=== PATIENT | female | born 1990 | race American Indian/Alaskan Native ===

== ENCOUNTER 2018-02-17 13:40 | Emergency (ER) | payer MEDICAID ==
[2018-02-17 13:49] VITALS: BP 104/62
--- NOTE | 2018-02-17 15:36 | Emergency Department Report ---
HPI - General Chief Complaint: Dental/Oral Time Seen by Provider: 02/17/18 15:04 - HPI HPI: 27-year-old Radha female presents to the emergency department with the complaint of pain to the left upper molar has been going on since last night. She says "I have a hole in that tooth and I think it's getting infected. " She denies any trouble swallowing. She denies any fever, nausea or vomiting. She took some ibuprofen without relief. She says that the pain radiates to the left side of her face. She does not currently have a primary care physician or a dentist. ED Past Medical Hx - Past Medical History Previous Medical History?: No - Social History Smoking Status: Current Every Day Smoker - Medications Home Medications: Home Medications Medication Instructions Recorded Confirmed Last Taken Type HYDROcodone/ACETAMINOPHEN [[place] 1 each PO Q8H PRN #8 tablet 02/17/18 Unknown Rx 5-325 Tablet] Sulfamethoxazole/Trimethoprim 1 each PO BID #10 tablet 02/17/18 Unknown Rx [Bactrim DS TAB] ED Review of Systems ROS: Stated complaint: TEETH HURT Other details as noted in HPI Comment: All other systems reviewed and negative Constitutional: denies: chills, fever Eyes: denies: eye pain, eye discharge, vision change ENT: dental pain. denies: throat pain Respiratory: denies: cough, shortness of breath, wheezing Cardiovascular: denies: chest pain, palpitations Gastrointestinal: denies: abdominal pain, nausea, diarrhea Genitourinary: denies: urgency, dysuria, discharge Musculoskeletal: denies: back pain, joint swelling, arthralgia Skin: denies: rash, lesions Neurological: denies: headache, weakness, paresthesias Physical Exam - Physical Exam Vital Signs: Vital Signs 02/17/18 13:44 Temperature 97.9 F Pulse Rate 61 Respiratory 14 Rate Blood Pressure 104/62 O2 Sat by Pulse 100 Oximetry Physical Exam: GENERAL: The patient is well-developed well-nourished. HENT: Normocephalic. Atraumatic. Patient has moist mucous membranes. There is a fracture of the left first molar. No visible or palpable dental abscess. No drooling or trismus. Otherwise oropharynx is clear. EYES: Extraocular motions are intact. Pupils equal reactive to light bilaterally. NECK: Supple. Trachea is midline. CHEST/LUNGS: Clear to auscultation. There is no respiratory distress noted. HEART/CARDIOVASCULAR: Regular. There is no tachycardia. There is no murmur. SKIN: Skin is warm and dry. NEURO: The patient is awake, alert, and oriented. The patient is cooperative. The patient has no focal neurologic deficits. The patient has normal speech. MUSCULOSKELETAL: There is no tenderness or deformity. There is no limitation range of motion. There is no evidence of acute injury. ED Course Vital Signs 02/17/18 13:44 Temperature 97.9 F Pulse Rate 61 Respiratory 14 Rate Blood Pressure 104/62 O2 Sat by Pulse 100 Oximetry ED Medical Decision Making - Medical Decision Making Patient has dental pain but does not have a follow-up with a dentist. There is a fractured tooth that most likely will need dental care. No visible palpable abscess at this time but she will be treated with some antibiotics and given a small amount of pain medication. She was given a dental clinic for referral. She will return to the ER with any worsening of her symptoms or any acute distress. Critical Care Time: No Critical care attestation.: If time is entered above; I have spent that time in minutes in the direct care of this critically ill patient, excluding procedure time. ED Disposition Clinical Impression: Pain, dental Disposition: [id number] TO HOME OR SELFCARE Is pt being admited?: No Condition: Stable Instructions: Toothache (ED) Additional Instructions: Please follow up with a dentist as soon as possible. Return to the emergency Department with any worsening of her symptoms or any acute distress. You have been prescribed a medication that is sedating and therefore should not be taken prior to driving, working, and responsible for children and in no way should be mixed with alcohol of any quantity. Prescriptions: HYDROcodone/ACETAMINOPHEN [[place] 5-325 Tablet] 1 each PO Q8H PRN #8 tablet PRN Reason: Pain Sulfamethoxazole/Trimethoprim [Bactrim DS TAB] 1 each PO BID #10 tablet Referrals: [facility] [Outside] - 3-5 Days
== END 2018-02-17 15:44 | disposition home or self-care (01) ==
LOC: ED 13:40
DX: K08.89 Other specified disorders of teeth and supporting structures (principal); F17.200 Nicotine dependence, unspecified, uncomplicated
CPT/HCPCS: 99282